=== PATIENT | female | born 1985 | race African-American/Black ===

== ENCOUNTER 2018-08-15 23:01 | Emergency (ER) | payer MEDICAID ==
[2018-08-15 23:23] LABS: Bilirubin Negative (Negative); Blood, Urine Small (Negative); Clarity Clear (Clear); Glucose, Urine (Dipstick) Negative (Negative); Leukocyte Moderate (Negative); Nitrite Negative (Negative); Protein, Urine (Dipstick) 30 mg/dL (Neg-Trace); Specific Gravity, Urine 1.015 (1.005-1.030); Urobilinogen > or = 8.0 mg/dL (0.2-1.0)
[2018-08-15 23:24] LABS: Pregnancy Test - Urine (BHCG) POSITIVE (Negative); Pregu Control Background? CLEAR/WHITE (CLR/WHITE); Pregu Control Bar Appear? YES (CONTROL BAR); Specific Gravity 1.015 (1.002-1.036)
[2018-08-15 23:32] LABS: Bacteria/HPF 3+ HPF (None Seen); Hyaline Casts/LPF 0-3 HYALINE CAST LPF (0-3 Hyaline)
[2018-08-16 00:31] LABS: #Eosinphils 0.1 thou/uL (0.0-0.7); #Lymphocytes 2.1 thou/uL (1.20-3.40); #Monocytes 0.6 thou/uL (0.11-0.59); #Neutrophils 6.2 thou/uL (1.40-6.50); %Basophils 0.5 % (0.0-1.0); %Eosinophils 0.7 % (0.0-10.0); %Lymphocytes 23.2 % (21.0-51.0); %Monocytes 6.3 % (0.0-10.0); %Neutrophils 69.2 % (42.0-75.0); Hemoglobin 11.3 g/dL (12.0-16.0); Mean Corpuscular HGB CONC 34.9 g/dL (32.0-36.0); Mean Corpuscular Hemoglobin 30.8 pg (27.0-31.0); Mean Corpuscular Volume 88.1 fL (78.0-98.0); Mean Platelet Volume 7.6 fL (7.4-10.4); Platelet Count 195 thou/uL (130-400); RBC Distribution Width 10.8 % (11.5-14.5); Red Blood Cell (RBC) Count 3.67 mill/uL (4.20-5.40); White Blood Cell (WBC) Count 8.9 thou/uL (4.8-10.8)
[2018-08-16 00:56] LABS: ALT (SGPT) 13 U/L (8-55); AST (SGOT) 13 U/L (5-34); Albumin 3.1 g/dL (3.5-5.0); Alkaline Phosphatase 101 U/L (40-150); Anion Gap 10 mmol/L (10-20); BUN (Urea Nitrogen) 5 mg/dL (7.0-18.7); Bilirubin, Total 0.3 mg/dL (0.2-1.2); Calc. Creatinine Clearance 0 mL/min (70-130); Calcium 8.1 mg/dL (7.8-10.44); Carbon Dioxide 21 mmol/L (22-29); Chloride 107 mmol/L (98-107); Estimated GFR-MDRD Greater than 90; Globulin 2.9 g/dL (2.4-3.5); Glucose 93 mg/dL (70-105); Lipase 10 U/L (8-78); Potassium 3.3 mmol/L (3.5-5.1); Sodium 135 mmol/L (136-145)
[2018-08-16] MEDS ORDERED: cefTRIAXone\\ROCEPHIN 1 GM VIAL ONE ×2 (01:05→03:47)
[2018-08-16] MEDS ORDERED: Sodium Chloride 0.9% 100 ML ONE ×2 (01:06→03:47)
[2018-08-16 04:06] LABS: Bilirubin Small (Negative); Blood, Urine Large (Negative); Clarity Slightly Cloudy (Clear); Glucose, Urine (Dipstick) Negative (Negative); Leukocyte Trace (Negative); Nitrite Negative (Negative); Protein, Urine (Dipstick) > or equal to 300 mg/dL (Neg-Trace); pH, Urine 6.5 (5.0-9.0)
[2018-08-16 04:07] LABS: Specific Gravity, Urine 1.028 (1.002-1.036)
[2018-08-16 04:15] LABS: RBC/HPF GREATER THAN 50-TNTC HPF (0-3)
[2018-08-16 04:16] LABS: Bacteria/HPF None Seen HPF (None Seen); Hyaline Casts/LPF 0-3 HYALINE CAST LPF (0-3 Hyaline); Squamous Epithelial 0-3 HPF (0-3)
--- NOTE | 2018-08-16 09:12 | ULT ---
PRELIMINARY REPORT/[facility]/EMERGENTY AFTER-HOURS PROCEDURE US After First Trimester, Transabdominal EXAM DATE/TIME: 08/16/2018 1:50 AM CLINICAL HISTORY: 33 years old, female; Pain; Other: Rlq pain; Gestational age or lmp: 18-19wks; ; Prior surger y; Surgery date: 6+ months; Surgery type: Prev x 3 TECHNIQUE: Real-time transabdominal obstetrical ultrasound of the maternal pelvis and a second or third trimeste r with image documentation. COMPARISON: No relevant prior studies available. FINDINGS: Fetus: Single living intrauterine gestation. Heart rate: 147 bpm Presentation: Vertex. Placenta: Right femoral. No acute findings. No abruption. Amniotic fluid: Amniotic fluid appears adequate. Anatomy: Visualized anatomy is unremarkable. BIOMETRICS Gestational age by US: 18w3d Gestational age by US: 18w3d JULIANN(AUA): 01/14/2019 JULIANN(LMP): 01/14/2019 EFW: 225g-%28 MATERNAL: Uterus: No acute findings. No myometrial mass. Cervix: No acute findings. Free fluid: No free fluid. Other findings: Appendix is not visualized within the right lower quadrant. IMPRESSION: Single viable intrauterine . No acute findings. Nonvisualization of the appendix. Thank you for allowing us to participate in the care of your patient. Dictated and Authenticated by: Ben Camacho MD 08/16/2018 3:29 AM Central Time ([place] & [place]) FINAL REPORT EMERGENCY AFTER HOURS LIMITED OBSTETRICAL ULTRASOUND: Date: 08/16/18 INDICATION: History of right lower quadrant pain. IMPRESSION: I agree with the preliminary report provided by [facility]. There is a single, live intrauterine gestation, with size and dates as above. Appendix is not visuali zed. POS: [facility]
[2018-08-17 21:13] LABS: Chlamydia by PCR Not Detected (NotDetected); GC by PCR Not Detected (NotDetected)
== END 2018-08-16 04:40 | disposition home or self-care (01) ==
LOC: SCSER 23:01
DX: O99.89 Other specified diseases and conditions complicating pregnancy, childbirth and the puerperium (principal); R10.31 Right lower quadrant pain; Z3A.18 18 weeks gestation of pregnancy
CPT/HCPCS: 51701; 76815; 76856; 80053; 81003; 81015; 81025; 83690; 84702; 85025; 86900; 86901; 87077; 87086; 87186; 87480; 87491; 87510; 87591; 87660; 96365; 96366; A4353; J0696; J7050

== ENCOUNTER 2018-08-16 04:59 | Day surgery (SDC) | payer MEDICAID, OTHER ==
[2018-08-16 05:35] VITALS: BP 118/66; TEMP 99; BMI 25.1
[2018-08-16] MEDS ORDERED: Morphine 4 MG/ML VIAL IM SCH (06:00)
[2018-08-16] MEDS ORDERED: Ondansetron ODT 8 MG TAB SL SCH (06:00)
[2018-08-16] MEDS ORDERED: Lactated Ringer's 2,000 ML IV SCH (06:30)
--- NOTE | 2018-08-16 07:31 | PRG ---
DATE OF SERVICE: 08/16/2018 OB ER ENCOUNTER No care up to this point. CHIEF COMPLAINT: Suspected pyelonephritis, transferred from [facility] ER. HISTORY OF PRESENT ILLNESS: The patient is a 33-year-old G4, P3 female with an intrauterine of 18 weeks and 3 days, who presented to [facility] ER with progressive right-sided flank pain with suprapubic pain when she urinates. On evaluation, there was concern with a kidney infection with pyuria and was sent here at [facility] for evaluation. The patient confirms this right-sided flank pain and this dysuria and suprapubic pain with urination, but denies any sharp stabbing pain, denies fever or rigors. The patient denies any other illness, headache, chest pain, shortness of breath, nausea, or vomiting. She has had little bit of diarrhea in the last couple days. Denies constipation. Denies any new rashes, hip problems, knee problems, or muscle weakness. Denies vaginal bleeding or leakage of fluid. Reports urinary urgency and frequency. PAST MEDICAL HISTORY: Negative. PAST SURGICAL HISTORY: D and C and 3 prior C-sections. SOCIAL HISTORY: Reports tobacco use. Denies drug or alcohol use. The patient has no care with this . OB LABS: Unavailable. REVIEW OF SYSTEMS: Per HPI. PHYSICAL EXAMINATION: Vital Signs: Temperature 99, satting 100% on room air, respiratory rate 16, heart rate of 80, blood pressure of . GENERAL: She appears to be in no acute distress. She is alert and oriented, cooperative, and pleasant to interact with. HEAD: Normocephalic, atraumatic. LUNGS: Clear to auscultation bilaterally. HEART: Regular rate and rhythm. ABDOMEN: Soft. She does have suprapubic tenderness to palpation and right CVA tenderness. She has no vertebral tenderness. No left-sided CVA tenderness. EXTREMITIES: Nontender, nonedematous. heart sounds were Doppler'd at 140s. Outpatient labs from the [facility] ER show a white count of 8.9, hemoglobin of 11.3, hematocrit of 33.4, platelets of 195,000 with no left shift. Urine has 7 to 10 white blood cells, trace leukocyte esterase, negative nitrites, has large ketones and protein, and no bacteria. ASSESSMENT AND PLAN: The patient is a 33-year-old female with an early pyelonephritis urinary tract infection, no evidence of any systemic infection, normal white count, no fever. The patient has been given 2 g of Rocephin at [facility] ER. We will be giving her 8 mg of morphine IM and 8 mg of Zofran sublingually. Looking at her urine, she appears to be severely dehydrated, so we will be giving her a couple liters of fluid before sending her home. The patient has been given instruction to return in 24 hours for evaluation or if she has fever. The patient will be discharged to the home. Job ID: [id number]
== END 2018-08-16 06:24 | disposition home or self-care (01) ==
LOC: L&D/OP 04:59
PROVIDERS: ATTEND Obstetrics & Gynecology
DX: O23.02 Infections of kidney in pregnancy, second trimester (principal); O99.332 Smoking (tobacco) complicating pregnancy, second trimester; F17.200 Nicotine dependence, unspecified, uncomplicated; O09.32 Supervision of pregnancy with insufficient antenatal care, second trimester; Z3A.18 18 weeks gestation of pregnancy
CPT/HCPCS: 96372; 99282; J2270

== ENCOUNTER → 2018-08-17 | Day surgery (SDC) | payer MEDICAID, OTHER ==
--- NOTE | 2018-08-18 09:13 | PRG ---
DATE OF SERVICE: 08/17/2018 OB ER ENCOUNTER: No care. CHIEF COMPLAINT: Followup from pyelonephritis. HISTORY OF PRESENT ILLNESS: The patient is a 33-year-old who was admitted to the hospital the day prior for pyelonephritis. She was kept overnight for IV antibiotics and observation. The patient did not incur a fever and was discharged to home with instructions to follow up for pyelonephritis. She reports that she is feeling much better now, she has not had any fever, and her back pain is resolving. OBJECTIVE: VITAL SIGNS: At the time of encounter, blood pressure 114/67, heart rate is 79, respiratory rate 20, and temperature 98.3. GENERAL: She appears to be in no acute distress. She is alert, oriented, cooperative, pleasant to interact with. She appears to be in much better spirits as compared to her first presentation. HEENT: Head is normocephalic, atraumatic. LABORATORY DATA: Reviewing her labs, the patient has urine culture, significant for Klebsiella pneumoniae, pansensitive. ASSESSMENT AND PLAN: The patient is a 33-year-old female, recovering from pyelonephritis with intrauterine at 18 weeks and has not established care yet. She has improved significantly with IV Rocephin. We will continue her outpatient treatment with Keflex 500 mg taken twice a day for the next 10 days and I have encouraged her to establish care here with an OB provider. She has been given a list of providers here in the [place] area. The patient is being discharged to home again with Keflex 500 mg twice a day for the next 10 days. Job ID: [id number]
== END ==
LOC: L&D/OP 17:12
PROVIDERS: ATTEND Obstetrics & Gynecology
DX: O23.02 Infections of kidney in pregnancy, second trimester (principal); B96.1 Klebsiella pneumoniae [K. pneumoniae] as the cause of diseases classified elsewhere; Z3A.18 18 weeks gestation of pregnancy; Z79.2 Long term (current) use of antibiotics
CPT/HCPCS: 99281

== ENCOUNTER 2019-05-24 11:43 | Emergency (ER) | payer OTHER, SELFPAY ==
--- NOTE | 2019-05-24 12:33 | RAD ---
CHEST 1 VIEW: HISTORY: Cough and congestion. COMPARISON: None. FINDINGS: Lungs are clear. No pneumothorax or effusion. Cardiac silhouette and mediastinal contours are within normal limits. IMPRESSION: No acute intrathoracic abnormality. POS: HOME
[2019-05-24] MEDS ORDERED: Dexamethasone 10 MG/ML VIAL ONE (12:46)
== END 2019-05-24 12:51 | disposition home or self-care (01) ==
LOC: ERS 11:43
DX: J06.9 Acute upper respiratory infection, unspecified (principal); Z71.6 Tobacco abuse counseling; F17.210 Nicotine dependence, cigarettes, uncomplicated
CPT/HCPCS: 71045; J1100

== ENCOUNTER 2019-06-06 23:17 | Emergency (ER) | payer SELFPAY ==
[2019-06-06] MEDS ORDERED: Ibuprofen 800 MG TAB ONE (23:43)
[2019-06-06] MEDS ORDERED: Cyclobenzaprine 10 MG TAB ONE (23:46)
== END 2019-06-06 23:52 | disposition home or self-care (01) ==
LOC: ERS 23:17
DX: M62.838 Other muscle spasm (principal); F17.210 Nicotine dependence, cigarettes, uncomplicated
CPT/HCPCS: 99284